=== PATIENT | female | born 1945 | race Caucasian/White ===

== ENCOUNTER 2018-04-26 09:35 | Inpatient (IN) | payer MEDICARE, MEDICAID ==
[~2018-04-26] VITALS: Ht 172.7 cm; Wt 92.2 kg
--- NOTE | 2018-04-26 09:35 | NUR ---
PT TO ROOM VIA EMS STRETCHER.
[2018-04-26 10:05] LABS: IMMATURE GRANULOCYTES 3.2 % (0.0-5.0); MEAN CELL VOLUME 82.1 fL CALC (80.0-100.0); MEAN CORPUSCULAR HGB 27.6 pG CALC (26.0-32.0); MEAN CORPUSCULAR HGB CONC 33.6 g/L CALC (32.0-36.0); PLATELET COUNT 369 thou/uL (130-400); RED BLOOD COUNT 5.91 mill/uL (4.20-5.60); RED CELL DISTRI WIDTH 14.1 % (11.5-15.5)
--- NOTE | 2018-04-26 10:10 | NUR ---
PT WITH TACHYPNEA O2 SAT 88%ON RA, RT AT BEDSID EFOR NUB TX. O2 APPLIED AT 4LPM. PT STATES SHE HAS "BEEN GETTING SICK FOR ABOUT 6 DAYS" WITH COUGH AND INCREASING SOB.SKIN PWD.ALL MONITORS ASSESSED.
[2018-04-26] MEDS ORDERED: ALEVE220 MG PO (10:11)
--- NOTE | 2018-04-26 10:15 | NUR ---
INITIATED IV ABT AND SOLUMEDROL ORDERED , O2 SAT 89% ON O2@4LPM VIA NC
[2018-04-26 10:17] LABS: BUN 21 mg/dL (8-23); BUN/CREATININE RATIO 30 (12-20 (CALC)); CARBON DIOXIDE 24 mmol/l (22-30); CREATININE 0.7 mg/dL (0.5-1.0); GFR > 60 ML/MIN (>=60 (CALC)); GFR FOR AFR.AMER. > 60 ML/MIN (>=60 (CALC)); POTASSIUM 3.4 mmol/l (3.5-5.1)
[2018-04-26 10:22] LABS: MANUAL DIFFERENTIAL YES
[2018-04-26 10:23] LABS: BAND 22 % (0-8); HEMATOCRIT 48.5 % (37.0-47.0); HEMOGLOBIN 16.3 g/dl (12.0-16.0); TOXIC GRANULATION MARKED
[2018-04-26 10:25] LABS: VACULATED NEUTROPHILS MODERATE
[2018-04-26 10:26] LABS: ANION GAP 18 (6-22 (CALC)); CHLORIDE 87 mmol/l (95-108); SODIUM 126 mmol/l (137-146)
--- NOTE | 2018-04-26 11:47 | NUR ---
RESP EVEN AND UNLABORED CONTINUOUS O2 PREVIOUS, O2 SAT 92%. VSS. SKIN PWD.PT PLEASANT AND COOPERATIVE.
--- NOTE | 2018-04-26 11:55 | NUR ---
CALLED REPORT TO GEE DOUGLAS MS2
--- NOTE | 2018-04-26 12:30 | NUR ---
PT RESTING COMFORTABLY IN STRETCHER, IV ABX AND FLUIDS INFUSING WITH NO DIFFICULTY. PT TALKING AND LAUGHING WITH FAMILY, RESP EVEN AND UNLABORED SAO2 93% AT THIS TIME. PT AND FAMILY UPDATED ON WAIT TIME. CALL HALL WITHIN REACH.
--- NOTE | 2018-04-26 13:05 | NUR ---
PT RESTING WITH EYES CLOSED .VSS. O2 SAT 96% ON O2@3LPM VIA NC. LUNGS CLEAR POST NEB TX. AWARE AND AGREEABLE TO ADMIT
[2018-04-26 13:40] LABS: URINE BLOOD DIPSTICK MODERATE (NEGATIVE); URINE GLUCOSE - DIPSTICK NEGATIVE (NEGATIVE); URINE KETONE TRACE mg/dL (NEGATIVE); URINE LEUK ESTERASE NEGATIVE (NEGATIVE); URINE NITRITE - DIPSTICK NEGATIVE (Negative); URINE PROTEIN - DIPSTICK 30 mg/dL (NEG-TRACE); URINE SPECIFIC GRAVITY 1.025
[2018-04-26 13:41] LABS: URINE BILIRUBIN - DIPSTICK SMALL (NEGATIVE); URINE COLOR RED
[2018-04-26 13:53] LABS: URINE BACTERIA FEW hpf; URINE SQUAMOUS EPITHELIAL CELL FEW EPI/hpf (0-FEW)
--- NOTE | 2018-04-26 13:53 | NUR ---
CALLED REPORT TO STACIE WALLIS MS2
--- NOTE | 2018-04-26 14:00 | NUR ---
TRANSPORTED TO [facility] VIA STRETCHER
--- NOTE | 2018-04-26 14:08 | NUR ---
PT ARRIVED TO [facility] VIA STRETCHER WITH DAUGHTER AND ER NURSE. PT ALERT AND ORIENTED X3, BUT DUE TO SOB ON EXERTION AND WEAKNESS PT CHOSE TO SLIDE OVER TO BED FROM STRETCHER, PT NORMALLY USES CANE AT HOME; LIVES ALONE. ORIENTED PT TO ROOM AND CALL LIGHT. DISCUSSED POC, BOTH IN AGREEMENT. PLACED ON 02 3L NC, PT IS A SMOKER BUT DECLINED NICOTINE PATCH. NOTED PSORIASIS PATCHES TO KNEES BILAT. PT HAS EDEMA BLE, TEDS APPLIED. IV ANTIBIOTICS INFUSING AT THIS TIME, ADMISSION ASSESSMENT COMPLETED. PT VOICES NO NEEDS OR COMPLAINTS AT THIS TIME. CALL LIGHT IN REACH,CONTINUE TO MONITOR.
[2018-04-26 14:15] VITALS: BP 144/75
[2018-04-26 15:00] VITALS: BP 117/56
[2018-04-26 18:11] LABS: MAGNESIUM 2.4 mg/dL (1.6-2.3)
--- NOTE | 2018-04-26 19:00 | NUR ---
RECEIVED REPORT FROM DAY NURSE. PT RESTING IN BED, FAMILY AT BED SIDE. NO NEEDS AT THIS TIME. CALL HALL IN REACH. WILL CONTINUE TO MONITOR.
[2018-04-26 19:30] VITALS: BP 103/50
--- NOTE | 2018-04-26 21:30 | NUR ---
PT RESTING IN BED. O2 AT 2L. ASSESMENT COMPLETED AT THIS TIME(SEE INTERVENTIONS) LUNGS RHONCHI, HR REGULAR, BOWEL SOUNDS HYPO ACTIVE, PT BREATING IS LABORED. NO EDEMA NOTED. IV FLUSHES WELL NO REDNESS OR EDEMA. ALL NEEDS MET AT THIS TIME. PT ADVISED TO CALL IF SHE NEEDS O USE RESTROOM. PT VERBALIZES UNDERSTANDING.CALL HALL IN REACH. WILL CONTINUE TO MONITOR.
--- NOTE | 2018-04-27 | NUR ---
PT RESTING IN BED. PRODUCTIVE WET COUGH NOTED. O2 @ 3L. PT IN NO DISTRESS. CALL HALL IN REACH. WILL CONTINUE TO MONITOR.
[2018-04-27 00:10] VITALS: BP 106/63
--- NOTE | 2018-04-27 04:00 | NUR ---
PT RESTING IN BED APPEARS TO BE ASLEEP AT THIS TIME. O2 @ 3L. CALL HALL IN REACH. WILL CONTINUE TO MONITOR.
[2018-04-27 05:22] VITALS: BP 101/59
[2018-04-27 05:54] LABS: HEMATOCRIT 44.4 % (37.0-47.0); HEMOGLOBIN 14.6 g/dl (12.0-16.0); IMMATURE GRANULOCYTES 4.8 % (0.0-5.0); MEAN CELL VOLUME 85.1 fL CALC (80.0-100.0); MEAN CORPUSCULAR HGB CONC 32.9 g/L CALC (32.0-36.0); PLATELET COUNT 335 thou/uL (130-400); RED BLOOD COUNT 5.22 mill/uL (4.20-5.60); RED CELL DISTRI WIDTH 14.6 % (11.5-15.5)
[2018-04-27 06:05] LABS: BUN 17 mg/dL (8-23); BUN/CREATININE RATIO 33 (12-20 (CALC)); CARBON DIOXIDE 21 mmol/l (22-30); CREATININE 0.5 mg/dL (0.5-1.0); GFR > 60 ML/MIN (>=60 (CALC)); GFR FOR AFR.AMER. > 60 ML/MIN (>=60 (CALC)); SODIUM 131 mmol/l (137-146)
[2018-04-27 06:08] LABS: ANION GAP 14 (6-22 (CALC)); CHLORIDE 100 mmol/l (95-108); POTASSIUM 4.4 mmol/l (3.5-5.1)
[2018-04-27 06:33] LABS: BAND 2 % (0-8); MANUAL DIFFERENTIAL YES
--- NOTE | 2018-04-27 07:00 | NUR ---
RECEIVED REPORT FROM NURSE DARLINE, PATIENT RESTING IN BED, ON CONTINUOUS O2 AT 3LPM VIA NC ON TELE, WITH SALINE LOCK ON RAC, DENIES PAIN AT THIS TIME. C/O PRODUCTIVE COUGH GRAYISH TO GREENISH SPUTUM.
[2018-04-27 08:00] VITALS: BP 110/58
--- NOTE | 2018-04-27 12:00 | NUR ---
SEEN ON ROUND BY CRYOGENICS REPAIRER, NEW ORDERS FOR NORMAL SALINE X100CC/HR, AND CT OF THE THORAX. PATIENT IS CURRENTLY SITTING ON THE RECLINER HOOKED TO 02 AT 3LPM, WITH EXERTIONAL DYSPNEA NOTED, REINFORCED ON CALLING FOR ASSISTANCE ON TRANSFER.CALL LIGHT WITHIN REACH.
[2018-04-27 12:30] VITALS: BP 152/60
[2018-04-27 15:42] VITALS: BP 123/69
--- NOTE | 2018-04-27 16:00 | NUR ---
PATIENT IN BED, EATING DINNER, NO DISCOMFORTS NOTED AT THIS TIME, STILL ON O2 AT 3LPM, EVEN UNLABORED BREATHING DENIES PAIN OR DISCOMFORTS CALL LIGHT AT REACH.CT OF THORAX DONE.
[2018-04-27 19:00] VITALS: BP 136/69
--- NOTE | 2018-04-27 19:37 | NUR ---
Report recieved from Catrachito Cooper.
--- NOTE | 2018-04-27 20:00 | NUR ---
PT RESTING IN BED. PT A/OX3. ABLE TO VOICE NEEDS. PERRLA. PULSES PRESENT IN ALL EXTREMITIES. LUNGS SOUNDS WITH WHEEZES IN ALL EXTREMITIES. ENGOURAGED TO USE I/S AT BEDSIDE. NO LABORED BREATHING NOTED. PT REFUSED STOOL SOFTNER, MIRALAX AND NICOTINE PATCH. EDUCATED ON IMPORTANCE WITH NO SUCCESS. POC DISCUSSED. PT VOICED UNDERSTIANDING. BED INLOWEST POSITION. EDUCATED TO CALL FOR ASSIST WHEN GETING OUT OF BED, CALL LIGHT WITHIN REACH. WILL MONITOR.
[2018-04-28] VITALS (7 sets, daily range): BP systolic 135–170; BP diastolic 60–86
--- NOTE | 2018-04-28 04:00 | NUR ---
pt resting in bed. no c/o pain or distress. pt assisted to restroom throughout the night. iv patent. bed in lowest position and call light in reach. will monitor.
[2018-04-28 05:35] LABS: HEMATOCRIT 40.7 % (37.0-47.0); HEMOGLOBIN 13.2 g/dl (12.0-16.0); MEAN CELL VOLUME 85.5 fL CALC (80.0-100.0); MEAN CORPUSCULAR HGB 27.7 pG CALC (26.0-32.0); MEAN CORPUSCULAR HGB CONC 32.4 g/L CALC (32.0-36.0); RED BLOOD COUNT 4.76 mill/uL (4.20-5.60); RED CELL DISTRI WIDTH 14.9 % (11.5-15.5)
[2018-04-28 05:57] LABS: ANION GAP 13 (6-22 (CALC)); BUN 17 mg/dL (8-23); BUN/CREATININE RATIO 29 (12-20 (CALC)); CARBON DIOXIDE 25 mmol/l (22-30); CHLORIDE 103 mmol/l (95-108); CREATININE 0.6 mg/dL (0.5-1.0); GFR > 60 ML/MIN (>=60 (CALC)); GFR FOR AFR.AMER. > 60 ML/MIN (>=60 (CALC)); MAGNESIUM 2.5 mg/dL (1.6-2.3); POTASSIUM 4.9 mmol/l (3.5-5.1); SODIUM 136 mmol/l (137-146)
[2018-04-28 06:05] LABS: IMMATURE GRANULOCYTES 10.8 % (0.0-5.0); PLATELET COUNT 385 thou/uL (130-400)
[2018-04-28 06:06] LABS: BAND 2 % (0-8); MANUAL DIFFERENTIAL YES
--- NOTE | 2018-04-28 07:04 | NUR ---
PT REPORT RECIEVED FROM Anahi AUGUSTINRN. PT SITTING IN RECLINER. NO S/S OF DISTRESS. CALL LIGHT IN REACH. WILL CONTINUE TO MONITOR.
--- NOTE | 2018-04-28 08:23 | NUR ---
PT A/O X3. SPEECH IS CLEAR. NONPRODUCTIVE COUGH. RESP EVEN AND UNLABORED. ALL LUNGS WHEEZING. O2 @2L ON PT. TELE IN PLACE. BOWEL SOUNDS ACTIVE X4. STRONG RADIAL AND PEDAL PULSES. #20 RW NS @100. SITE APPEARS HEALTHY. PT DENIES ANY PAIN OR NEEDS. POC DISCUSSED. SAFETY PRECAUTIONS IN PLACE. CALL LIGHT IN REACH. WILL CONTINUE TO MONITOR.
--- NOTE | 2018-04-28 09:00 | NUR ---
PT DAUGHTER VERY UPSET STATING SHE HAS NOT SPOKEN TO THE DOCTOR IN TWO DAYS. SHE WANTS TO SPEAK WITH HIM TO DISCUSS WHAT IS GOING ON WITH HER MOM. I DISCUSSED W/ DAUGHTER I WILL LET DOCTOR KNOW SHE WOULD LIKE TO SPEAK WITH HIM BEFORE SHE LEAVES, ALSO VERBALIZED THAT I AM UNAWARE WHEN EXACTLY THE DOCTOR WILL BE AVAILABLE. DAUGHTER STATES UNDERSTANDING. DAUGHTER IS AWARE I WILL DISCUSS INFORMATION REGARDING HER FATHER WITH HER IF SHE DOES NOT GET TO SPEAK TO THE DOCTOR BEFORE SHE LEAVES.
--- NOTE | 2018-04-28 12:10 | NUR ---
PT APPEARS TO BE A LOT LESS ANXIOUS THAN THIS MORNING. PT DENIES ANY PAIN OR NEEDS. TELE IN PLACE. CALL LIGHT IN REACH. WILL CONTINUE TO MONITOR.
--- NOTE | 2018-04-28 16:15 | NUR ---
PT SITTING IN RECLINER. NO C/O PAIN OR NEEDS. CALL LIGHT IN REACH. WILL CONTINUE TO MONITOR
--- NOTE | 2018-04-28 19:00 | NUR ---
PT DAUGHTER COMES OUT OF PT ROOM AND WANTS TO TALK WITH ME IN THE [place]. SHE IS VERY UPSET THAT SHE DID NOT GET TO SEE THE DOCTOR. PT STATES "IF I DONT GET TO SEE THE DOCTOR BY 11 AM TOMORROW THERE WILL BE PROBLEMS, I WILL GO TALK TO ADMINISTRATION. I DISCUSSED ALL INFORMATION W/ PT REGARDING WHAT DOCTOR TOLD PT THIS MORNING. DAUGHTER STATES "THAT IS NOT WHAT MY MOM TOLD ME SHE TOLD ME HE SAID SHE HAS CANCER". I CLARIFIED W/ DAUGHTER THAT THE INFORMATION HER DAUGHTER GAVE HER WAS INCORRECT. I WENT INTO DETAILS DESCRIBING EVERYTHING THE MD SAID TO PT.DAUGHTER IS ALSO UPSET BECAUSE PT HAS BRUISING TO LT FOREARM. I CLARIFIED TO DAUGHTER THAT PT HAD A INFILTRATES LAST NIGHT THAT WOULD LEAD TO THE BRUISING. Anahi AUGUSTIN,RN ALSO DISCUSSED THIS W/ DAUGHTER RIGHT AFTER MYSELF. PTSTATES UNDERSTANDING. VERY ADAMANT ABOUT TALKING W/ MD IN THE MORNING. I TOLD DAUGHTER I WILL PASS HER MESSAGE ALONG TO THE NEXT SHIFT AND THEY WILL LET THE MORNING NURSE KNOW HER CONCERNS.
--- NOTE | 2018-04-28 19:00 | NUR ---
REPORT RECIEVED FROM GEE MONTES. PT FAMILY AT BEDSIDE, DAUGHTER UPSET BECAUSE SHE HASNT BEEN ABLE TO SPEAK WITH MD. POC DISCUSSED. AISSATOU CONCERNED WITH ARM THAT WAS BRUISED, EXPLAINED TO [place] THAT HER MONS IV INFILTRATED EARLY THIS MORNING AND IV WAS REPLACED AND BRUISING IS TO BE EXPECTED. EDUCATED DAUGHTER THAT WE WILL MONITOR AND KEEP ICE AND ARM ELEVATED FOR ANY DISCOMFORT.NO PAIN VOICED OR DISTRESS NOTED AT THIS TIME. WILL CONTINUE TO MONITOR,
[2018-04-29 03:45] VITALS: BP 145/75; BP 165/79
[2018-04-29 05:44] LABS: ALKALINE PHOSPHATASE 111 u/l (38-126); AMYLASE 98 u/l (30-110); BILIRUBIN, TOTAL 0.3 mg/dL (0.0-1.4); BUN 18 mg/dL (8-23); BUN/CREATININE RATIO 29 (12-20 (CALC)); CARBON DIOXIDE 28 mmol/l (22-30); CHLORIDE 103 mmol/l (95-108); CREATININE 0.6 mg/dL (0.5-1.0); GFR > 60 ML/MIN (>=60 (CALC)); GFR FOR AFR.AMER. > 60 ML/MIN (>=60 (CALC)); LIPASE 258 u/l (23-300); MAGNESIUM 2.5 mg/dL (1.6-2.3); SGOT/AST 38 u/l (9-36); SODIUM 137 mmol/l (137-146)
[2018-04-29 05:46] LABS: ALBUMIN 2.8 g/dL (3.2-5.0); ANION GAP 12 (6-22 (CALC)); HEMATOCRIT 43.2 % (37.0-47.0); HEMOGLOBIN 13.9 g/dl (12.0-16.0); MEAN CELL VOLUME 85.9 fL CALC (80.0-100.0); MEAN CORPUSCULAR HGB 27.6 pG CALC (26.0-32.0); MEAN CORPUSCULAR HGB CONC 32.2 g/L CALC (32.0-36.0); PLATELET COUNT 418 thou/uL (130-400); POTASSIUM 5.5 mmol/l (3.5-5.1); RED BLOOD COUNT 5.03 mill/uL (4.20-5.60); RED CELL DISTRI WIDTH 15.2 % (11.5-15.5); TOTAL PROTEIN 5.6 g/dL (6.3-8.2)
[2018-04-29 06:10] LABS: IMMATURE GRANULOCYTES 13.9 % (0.0-5.0)
[2018-04-29 06:11] LABS: MANUAL DIFFERENTIAL YES
[2018-04-29 07:53] VITALS: BP 111/74
--- NOTE | 2018-04-29 07:54 | NUR ---
REPORT RECEIVED FROM TAB RN; PT SITTING UP IN RECLINER EATING BREAKFAST; 02 3L NC; RESP LABORED; PRODUCTIVE COUGH NOTED; TELE IN PLACE; IV R. HAND; S/L; FLUSHED WITHOUT DIFFICULTY, SITE APPEARS HEALTHY; SAFETY PRECAUTION REINFORCE; CALL HALL IN REACH; WILL CONTINUE TO MONITOR.
--- NOTE | 2018-04-29 10:21 | NUR ---
ENTERED ROOM TO ADMINISTER AM MEDS, SON AT BEDSIDE; PT'S REFUSING ALL AM MEDS; RERQUESTING ALEVE FOR PAIN; REF TYLENOL; PROVINCE ARCHIVIST AT BEDSIDE TO DO WALK TEST;
[2018-04-29 12:00] VITALS: BP 158/61
--- NOTE | 2018-04-29 12:25 | NUR ---
PT SITTING UP IN RECLINER WATCHING TV; PT REQ ORIGINAL COPIES OF LIVING WILL; CALL HALL IN REACH;
--- NOTE | 2018-04-29 12:26 | NUR ---
PT SITING UP IN RECLINER, WATCHING TV; SAFETY PRECAUTION REINFORCE; PT VOICE NO CONCERNS; CALL HALL IN REACH.
--- NOTE | 2018-04-29 15:40 | NUR ---
PT REPORTS PAIN TO #20G IN RIGHT HAND,SITE REMOVED WITH CATHETER INTACT.NEW #22G STARTED TO RIGHT HAND ON FIRST ATTEMPT BY WRITTER.IV SITE FLUSHED AND PATENT;PT TOLERATED WELL.
[2018-04-29 16:00] VITALS: BP 160/80
--- NOTE | 2018-04-29 18:03 | NUR ---
PT SITTING UP IN BED EATING SUPPER AND TALKING ON THE PHONE; 02 3L NC; PRODUCTIVE COUGH NOTED; PT VOICED NO CONCERNS;
--- NOTE | 2018-04-29 19:00 | NUR ---
RECIEVED REPORT FROM DAY NURSE. PT RESTING QUIETLY IN BED VISITING WITH FAMILY. NO NEEDS AT THIS TIME. CALL HALL IN REACH. WILL CONTINUE TO MONITOR.
[2018-04-29 19:05] VITALS: BP 147/80
--- NOTE | 2018-04-29 21:30 | NUR ---
PT RESTING IN BED WITH EYES CLOSED. NO S/S OF DISTRESS. O2 @ 3L. ASSESMENT COMPLETED AT THIS TIME(SEE INTERVENTION) lung sounds wheezy, HEART SOUND REGULAR, BOWELS SOUNDS ACTIVE, NO EDEMA NOTED. IV FLUSHES WELL NO REDNESS OR EDEMA. NO NEEDS AT THIS TIME. CALL HALL IN REACH. WILL CONTINUE TO MONITOR.
--- NOTE | 2018-04-30 | NUR ---
PT APPEARS ASLEEP AT THIS TIME. O2 @ 3L. NO S/S OF DISTRESS. CALL HALL IN REACH. WILL CONTINUE TO MONITOR.
[2018-04-30 00:30] VITALS: BP 155/78
[2018-04-30 04:00] VITALS: BP 165/86
--- NOTE | 2018-04-30 04:00 | NUR ---
PT ASLEEP AT THIS TIME. NO NEEDS. CALL HALL IN REACH. WILL CONTINUE TO MONITOR.
[2018-04-30 05:39] LABS: HEMATOCRIT 44.7 % (37.0-47.0); HEMOGLOBIN 14.6 g/dl (12.0-16.0); MEAN CELL VOLUME 85.6 fL CALC (80.0-100.0); MEAN CORPUSCULAR HGB CONC 32.7 g/L CALC (32.0-36.0); NEUT# 11.24 thou/uL (2.00-7.15); RED BLOOD COUNT 5.22 mill/uL (4.20-5.60); RED CELL DISTRI WIDTH 15.1 % (11.5-15.5)
[2018-04-30 06:05] LABS: ALKALINE PHOSPHATASE 116 u/l (38-126); ANION GAP 15 (6-22 (CALC)); BILIRUBIN, TOTAL 0.5 mg/dL (0.0-1.4); BUN 19 mg/dL (8-23); BUN/CREATININE RATIO 32 (12-20 (CALC)); CARBON DIOXIDE 27 mmol/l (22-30); CHLORIDE 99 mmol/l (95-108); CREATININE 0.6 mg/dL (0.5-1.0); GFR > 60 ML/MIN (>=60 (CALC)); GFR FOR AFR.AMER. > 60 ML/MIN (>=60 (CALC)); MAGNESIUM 2.4 mg/dL (1.6-2.3); SGOT/AST 37 u/l (9-36); SODIUM 136 mmol/l (137-146)
[2018-04-30 06:09] LABS: POTASSIUM 5.3 mmol/l (3.5-5.1)
[2018-04-30 06:23] LABS: IMMATURE GRANULOCYTES 12.5 % (0.0-5.0)
[2018-04-30 07:28] VITALS: BP 175/74
--- NOTE | 2018-04-30 07:45 | NUR ---
REPORT RECEIVED FROM GEE GREGORIO; PT SITTING UP IN RECLINER EATING BREAKFAST; RESP EVEN AND UNLABORED; [address]; TELE IN PLACE; IV FLUSHED WITHOUT DIFFICULTY; SITE APPEARS HEALHY; PSORIASIS NOTED TO BLE; SAFETY PRECAUTION REINFORCE; CALL HALL & CANE IN REACH.
--- NOTE | 2018-04-30 11:14 | NUR ---
DR GAVIRIA AT BEDSIDE TO DISCUSS POC
[2018-04-30 11:26] VITALS: BP 171/86
--- NOTE | 2018-04-30 11:54 | NUR ---
PT SITTING UP IN RECLINER VISITING WITH HER DAUGHTER AND WATCHING TV; O2 NC 3L IN PLACE; TELE IN PLACE; PT VOICE NO CONCERNS; PT 02 AT REST 88% WITH O2 IN PLACE; AWARE;
--- NOTE | 2018-04-30 12:40 | NUR ---
AMBULATE PT IN ROOM WITHOUT O2, STAT DROPPED TO 86%; TEST HOLE DRILLER AWARE;
[2018-04-30 16:00] VITALS: BP 176/83
--- NOTE | 2018-04-30 17:48 | NUR ---
PT SITTING UP IN THE RECLINER EATING SUPPER & WATCHING TV; O2 3L NC; MEDICATED PER; TELE IN PLACE; CALL HALL IN REACH.
--- NOTE | 2018-04-30 19:10 | NUR ---
REPORT RECEIVED FROM DAY NURSE, PT IS IN RECLINER TALKING ON CELL PHONE. NO S/S OF DISTRESS NOTED, WILL FOLLOW-UP.
[2018-04-30 19:20] VITALS: BP 156/92
--- NOTE | 2018-04-30 21:25 | NUR ---
PT ASSESSED AND MEDICATED ORDERS PROVIDE. FAMILY AT BEDSIDE X4. NO S/S OF DISTRESS NOTED. PT IS SITTING IN RECLINER. POC DISCUSSED W/PT AND DAUGHTER. DAUGHTER IS REQUESTING CASE MANAGEMENT TO CONSULT W/HER IN AM REGARDING PT'S NEED FOR 02 AT HOME. LUNG SOUNDS MILD WHEEZE THROUGHOUT, ABD SOFT NON-TENDER, TRACE EDEMA TO LOWER LEGS BILAT, RASH TO LEGS BILAT (REPORTED BY PT PSORIASIS), SOME BRUISING TO ARMS FROM PRIOR IV SITE AND LAB DRAWS, PT DENIES BEING ON BLOOD THINNERS. WILL CONTINUE TO MONITOR. PT INSTRUCTED TO CALL IF ANY NEEDS ARISE OR IF SHE NEEDS TO GET UP. O2NC IS ON @3L.
[2018-04-30 22:54] LABS: URINE BILIRUBIN - DIPSTICK NEGATIVE (NEGATIVE); URINE BLOOD DIPSTICK NEGATIVE (NEGATIVE); URINE COLOR YELLOW; URINE GLUCOSE - DIPSTICK NEGATIVE (NEGATIVE); URINE KETONE NEGATIVE (NEGATIVE); URINE LEUK ESTERASE NEGATIVE (Negative); URINE NITRITE - DIPSTICK NEGATIVE (Negative); URINE PH 7.5 (4.5-8.0); URINE PROTEIN - DIPSTICK NEGATIVE (NEG-TRACE); URINE SPECIFIC GRAVITY <=1.005; URINE UROBILINOGEN - DIPSTICK 0.2 E.U./dL (0.2)
[2018-04-30 23:05] LABS: URINE CLARITY CLEAR
[2018-05-01] VITALS: BP 154/78
[2018-05-01 04:00] VITALS: BP 175/83
--- NOTE | 2018-05-01 04:43 | NUR ---
PT MEDICATED FOR BP AND ORDERS PROVIDE. PT IS AWAKE AND WATCHING TV. NO OTHER S/O DISTRESS NTOED. PT EDUCATED ON BREATHING TECHNIQUES AND O2 SATS.
[2018-05-01 05:11] LABS: HEMATOCRIT 50.3 % (37.0-47.0); MEAN CELL VOLUME 85.8 fL CALC (80.0-100.0); MEAN CORPUSCULAR HGB 27.3 pG CALC (26.0-32.0); MEAN CORPUSCULAR HGB CONC 31.8 g/L CALC (32.0-36.0); NEUT# 12.41 thou/uL (2.00-7.15); RED BLOOD COUNT 5.86 mill/uL (4.20-5.60)
[2018-05-01 05:35] LABS: ALBUMIN 3.2 g/dL (3.2-5.0); ALKALINE PHOSPHATASE 107 u/l (38-126); BILIRUBIN, TOTAL 0.6 mg/dL (0.0-1.4); BUN 19 mg/dL (8-23); BUN/CREATININE RATIO 29 (12-20 (CALC)); CARBON DIOXIDE 31 mmol/l (22-30); CHLORIDE 98 mmol/l (95-108); CREATININE 0.7 mg/dL (0.5-1.0); GFR > 60 ML/MIN (>=60 (CALC)); GFR FOR AFR.AMER. > 60 ML/MIN (>=60 (CALC)); MAGNESIUM 2.6 mg/dL (1.6-2.3); SGOT/AST 35 u/l (9-36); SODIUM 137 mmol/l (137-146); TOTAL PROTEIN 6.2 g/dL (6.3-8.2)
[2018-05-01 05:36] LABS: ANION GAP 13 (6-22 (CALC)); POTASSIUM 5.2 mmol/l (3.5-5.1)
[2018-05-01 05:56] LABS: IMMATURE GRANULOCYTES 8.6 % (0.0-5.0)
[2018-05-01 06:07] VITALS: BP 166/80
[2018-05-01 09:37] VITALS: BP 180/80
[2018-05-01 12:08] VITALS: BP 149/62
[2018-05-01] MEDS ORDERED: IRBESARTAN75 MG PO (13:38)
[2018-05-01] MEDS ORDERED: MEDDOSEPAK PO (13:38)
[2018-05-01] MEDS ORDERED: DOXYCYC MONO100 M2 PO (13:38)
[2018-05-01 15:05] VITALS: BP 156/67
--- NOTE | 2018-05-01 15:31 | NUR ---
RESPIRATORY THERAPY AMBULATING HALLWAY WITH PT FOR 6-MIN WALK TEST.
--- NOTE | 2018-05-01 18:41 | NUR ---
Discharge instructions given. Patient verbalizes understanding of same. Discharged in stable condition via Wheelchair to Home with family. All belongings sent with pt.
== END 2018-05-01 18:35 | disposition home health service (06) | DRG 193 ==
LOC: ED 09:35 → ED-I 11:39 → ED 11:50 → MS2 11:51
PROVIDERS: Family Medicine; Internal Medicine Nephrology; Nurse Practitioner Family; ADMIT Internal Medicine; ATTEND Internal Medicine
DX: J18.9 Pneumonia, unspecified organism (principal); J96.01 Acute respiratory failure with hypoxia; J44.1 Chronic obstructive pulmonary disease with (acute) exacerbation; E87.1 Hypo-osmolality and hyponatremia; N39.0 Urinary tract infection, site not specified; E87.2 Acidosis; J44.0 Chronic obstructive pulmonary disease with (acute) lower respiratory infection; M19.90 Unspecified osteoarthritis, unspecified site; F17.210 Nicotine dependence, cigarettes, uncomplicated; E87.6 Hypokalemia; L40.9 Psoriasis, unspecified; K59.00 Constipation, unspecified; I10 Essential (primary) hypertension; F41.9 Anxiety disorder, unspecified; B96.20 Unspecified Escherichia coli [E. coli] as the cause of diseases classified elsewhere; R26.89 Other abnormalities of gait and mobility
CPT/HCPCS: J1650; Q9967

== ENCOUNTER → 2018-06-04 | Outpatient (REF) | payer MEDICARE, MEDICAID ==
[~2018-06-04] MED LIST: ALEVE220 MG PO; DOXYCYC MONO100 M2 PO; IRBESARTAN75 MG PO; MEDDOSEPAK PO
== END | disposition home or self-care (01) ==
LOC: RT 08:46
PROVIDERS: ATTEND Nurse Practitioner
DX: R05 Cough (principal)

== ENCOUNTER 2021-02-07 17:16 | Emergency (ER) | payer MEDICARE, MEDICAID ==
[~2021-02-07] VITALS: Ht 172.7 cm; Wt 71.8 kg
[2021-02-07 18:45] LABS: IMMATURE GRANULOCYTES 1.3 % (0.0-5.0); MEAN CELL VOLUME 91.1 fL CALC (80.0-100.0); MEAN CORPUSCULAR HGB 29.2 pG CALC (26.0-32.0); MEAN CORPUSCULAR HGB CONC 32.1 g/dL CAL (32.0-36.0); NEUT# 1.5 thou/uL (2.00-7.15); RED BLOOD COUNT 4.04 mill/uL (4.20-5.60); RED CELL DISTRI WIDTH 18.9 % (11.5-15.5)
[2021-02-07 18:49] LABS: HEMATOCRIT 36.8 % (37.0-47.0); HEMOGLOBIN 11.8 g/dl (12.0-16.0)
[2021-02-07 18:56] LABS: ACT PARTIAL THROMBO TIME 22.6 SECONDS (20.0-32.5); PROTHROMBIN TIME 10.3 SECONDS (9.0-12.5)
[2021-02-07 18:57] LABS: ALBUMIN 3.5 g/dL (3.2-5.0); ALKALINE PHOSPHATASE 124 u/l (38-126); ANION GAP 10 (6-22 (CALC)); BILIRUBIN, TOTAL 0.9 mg/dL (0.0-1.4); BUN 20 mg/dL (8-23); BUN/CREATININE RATIO 24 (12-20 (CALC)); CARBON DIOXIDE 25 mmol/l (22-30); CHLORIDE 100 mmol/l (95-108); CREATININE 0.8 mg/dL (0.5-1.0); GFR > 60 ML/MIN (>=60 (CALC)); GFR FOR AFR.AMER. > 60 ML/MIN (>=60 (CALC)); LIPASE 230 u/l (23-300); MAGNESIUM 2.2 mg/dL (1.6-2.3); POTASSIUM 3.6 mmol/l (3.5-5.1); SGOT/AST 83 u/l (9-36); SODIUM 132 mmol/l (137-146); TOTAL PROTEIN 6.5 g/dL (6.3-8.2)
[2021-02-07 22:06] LABS: URINE BILIRUBIN - DIPSTICK NEGATIVE (NEGATIVE); URINE BLOOD DIPSTICK TRACE-INTACT (NEGATIVE); URINE COLOR YELLOW; URINE GLUCOSE - DIPSTICK NEGATIVE (NEGATIVE); URINE KETONE NEGATIVE (NEGATIVE); URINE LEUK ESTERASE NEGATIVE (NEGATIVE); URINE PROTEIN - DIPSTICK 100 mg/dL (NEG-TRACE); URINE SPECIFIC GRAVITY 1.015; URINE UROBILINOGEN - DIPSTICK 0.2 E.U./dL (0.2)
[2021-02-07 22:07] LABS: URINE NITRITE - DIPSTICK POSITIVE (Negative)
[2021-02-07 22:18] LABS: URINE BACTERIA RARE hpf; URINE RBC 0-2 RBC/hpf (0-5); URINE SQUAMOUS EPITHELIAL CELL FEW EPI/hpf (0-FEW)
[2021-02-07 23:00] VITALS: BP 132/74
== END 2021-02-07 23:15 | disposition home or self-care (01) ==
LOC: ED 17:16
DX: R19.7 Diarrhea, unspecified (principal); C25.9 Malignant neoplasm of pancreas, unspecified; C34.90 Malignant neoplasm of unspecified part of unspecified bronchus or lung; F17.210 Nicotine dependence, cigarettes, uncomplicated; R82.71 Bacteriuria; Z79.899 Other long term (current) drug therapy; Z20.822 Contact with and (suspected) exposure to COVID-19
CPT/HCPCS: Q9967